=== PATIENT | female | born 1980 | race African-American/Black ===

== ENCOUNTER 2016-09-10 21:38 | Emergency (ER) | payer OTHER ==
[2016-09-10 21:58] VITALS: BP 100/46
[2016-09-10] MEDS ORDERED: AMOXICILLIN TR/POT CLAVULANATE 500-125 MG TAB PO ONE (23:47)
--- NOTE | 2016-09-10 23:48 | ER Document Report ---
ED ENT - General Mode of Arrival: Ambulatory Information source: Patient TRAVEL OUTSIDE OF THE [place] IN LAST 30 DAYS: No - HPI Patient complains to provider of: Ear problem Onset/Duration: Gradual, Persistent Quality of pain: Achy - General Chief Complaint: Ear Pain Stated Complaint: LEFT EAR PAIN Notes: Patient is a 35-year-old female presenting to the emergency department concerned of left ear pain. Patient sees an ear, nose and throat doctor, Dr. Núñez, for possible eustachian tube dysfunction. Patient was told to use Zyrtec and nose spray to control her symptoms. Patient states she uses, but she doesn't normally take the Zyrtec. Patient also reports taking phentermine to help her lose weight. (RADHA CORDOBA) - Related Data Allergies/Adverse Reactions: Fish Containing Products Adverse Reaction (Mild, Verified 12/26/15 11:57) Past Medical History - General Information source: Patient, [facility] Records - Social History Smoking Status: Never Smoker Chew tobacco use (# tins/day): No Frequency of alcohol use: None Drug Abuse: None Family History: Reviewed & Not Pertinent Patient has suicidal ideation: No Patient has homicidal ideation: No GI Medical History: Reports: Hx Gastroesophageal Reflux Disease - TUMS - Immunizations Hx Pneumococcal Vaccination: 03/09/15 Review of Systems - Review of Systems Constitutional: No symptoms reported EENT: See HPI, Ear pain Cardiovascular: No symptoms reported Respiratory: No symptoms reported Gastrointestinal: No symptoms reported Genitourinary: No symptoms reported Female Genitourinary: No symptoms reported Musculoskeletal: No symptoms reported Skin: No symptoms reported Hematologic/Lymphatic: No symptoms reported Neurological/Psychological: No symptoms reported -: Yes All other systems reviewed and negative Physical Exam - General General appearance: Alert - HEENT Head: Normocephalic, Atraumatic Eyes: Normal Pupils: PERRL Ears: Other - Serous otitis media left ear - Respiratory Respiratory status: No respiratory distress Chest status: Nontender Breath sounds: Normal Chest palpation: Normal - Cardiovascular Rhythm: Regular Heart sounds: Normal auscultation Murmur: No - Abdominal Inspection: Obese Tenderness: Nontender - Back Back: Normal, Nontender - Extremities General upper extremity: Normal inspection, Nontender General lower extremity: Normal inspection, Nontender - Neurological Neuro grossly intact: Yes Cognition: Normal Orientation: AAOx4 Tracy Coma Scale Eye Opening: Spontaneous Olds Coma Scale Verbal: Oriented Olds Coma Scale Motor: Obeys Commands Tracy Coma Scale Total: 15 Speech: Normal - Psychological Associated symptoms: Normal affect, Normal mood - Skin Skin Temperature: Warm Skin Moisture: Dry Skin Color: Normal Course - Re-evaluation Re-evalutation: 09/10/16 23:48 Patient presents emergency per with 1 day history of left ear pain. She says she has a history of eustachian tube dysfunction*bother about 24 hours ago she usually takes allergy medications no sinus congestion difficulty breathing or swallowing no headache blurred vision double vision sore throat cough upper restrain illness. No nausea vomiting dull pain diarrhea fevers chills or change in appetite. On physical examination she has no external otitis media no pain with manipulation of the ear and no posterior redness tenderness or swelling of the mastoid. She has a otitis media with some moistened cirrhosis. No ruptured of the TM. When ahead and start on Augmentin Corticosporin call primary care physician locally ENT and discussed reasons for ED return sooner (NORM DAVIS) - Vital Signs Vital signs: Temp Pulse Resp BP Pulse Ox 97.7 F 73 16 100/46 L 98 09/10/16 21:56 09/10/16 21:56 09/10/16 21:56 09/10/16 21:56 09/10/16 21:56 Discharge - Discharge Clinical Impression: acute left otitis media Condition: Stable Disposition: HOME, SELF-CARE Additional Instructions: Otitis Media You have a middle ear infection (otitis media). This is usually a complication of a cold or sore throat. The middle ear cavity becomes filled with infection. Pressure and stretching of the ear drum cause pain. Antibiotics are required. A 10 day course is usually prescribed. A decongestant may be recommended if you have a "runny nose." You may need anesthetic drops or other pain medication. A follow-up exam may be recommended to make sure the infection has completely cleared. If the ear begins to drain, it means the ear drum has ruptured. This will usually heal spontaneously. However, it means you should keep the ear dry until re-examined by a doctor. Call the physician or return for examination at once if there is severe headache, stiff neck, confusion, increasing fever, or dizziness. You should improve significantly within two days. If you're not better, call the doctor. Prescriptions: Amox Tr/Potassium Clavulanate [Augmentin 875-125 Tablet] 1 tab PO BID 10 Days Forms: Return to Work Referrals: [facility] [Provider Group] (Call for an appointment to be seen in follow-up in 3-4 days return for increasing worsening or new symptoms) Scribe Attestation: 09/10/16 23:50 I personally performed the services described in the documentation reviewed the documentation recorded by my scribe in my presence and it accurately and completely records my words and actions (NORM DAVIS) Scribe Documentation - Scribe Written by Scribe:: Radha Cordoba 09/11/2016 0051 acting as scribe for :: Dr. Davis
== END 2016-09-11 00:17 | disposition home or self-care (01) ==
LOC: ER 21:38
DX: H65.02 Acute serous otitis media, left ear (principal); H92.02 Otalgia, left ear; Z79.899 Other long term (current) drug therapy
CPT/HCPCS: 99282